=== PATIENT | male | born 1985 | race Caucasian/White ===

== ENCOUNTER 2020-11-15 07:48 | Emergency (ER) | payer OTHER ==
[~2020-11-15] VITALS: Ht 182.9 cm; Wt 89.1 kg
--- NOTE | 2020-11-15 08:59 | NUR ---
FIRST CONTACT: LEFT LOW BACK/FLANK PAIN, NAUSEA, CHILLS SINCE LAST NIGHT, "MAYBE A KIDNEY STONE"- NO HX OF, "DOESN'T HURT TO URINATE BUT THERE'S SENSITIVITY", DENIES OTHER URIN S/S OR DISCHARGE, +COVID VAX. PT WITH STEADY GAIT TO ROOM. POSTIONED TO COMFORT. ATTACHED TO MONITORS. FROY. JASWINDER.
[2020-11-15] MEDS ORDERED: SODIUM CHLORIDE 0.9% 1,000ML IV ONE (09:00)
[2020-11-15] MEDS ORDERED: KETOROLAC 30 MG/1 ML ONE (09:00)
[2020-11-15] MEDS ORDERED: KETOROLAC 30 MG/1 ML IVPush ONE (09:00)
[2020-11-15] MEDS ORDERED: SODIUM CHLORIDE FLUSH 10ML SYR IVF ONE (09:00)
[2020-11-15] MEDS ORDERED: ONDANSETRON 2MG/ML, 2ML ONE (09:08)
[2020-11-15 09:14] LABS: MICROSCOPIC INDICATED
[2020-11-15] MEDS ORDERED: MORPHINE SULFATE 4 MG/ML, 1ML ONE ×2 (09:18→11:08)
[2020-11-15] MEDS: MORPHINE SULFATE 4 MG/ML, 1ML IVPush PRN ×2 (09:28→11:13)
[2020-11-15] MEDS ORDERED: ONDANSETRON 2MG/ML, 2ML IVPush ONE (09:30)
[2020-11-15 09:32] LABS: BASOPHILS % (AUTO) 0 % (0-1); EOSINOPHILS % (AUTO) 0 % (1-7); LYMPHOCYTES % (AUTO) 8 % (22-44); MEAN CORPUSCULAR HEMOGLOBIN 29.4 pg (27.5-34.5); MEAN CORPUSCULAR HGB CONC 33.6 g/dL (33.2-36.2); MEAN PLATELET VOLUME 9.9 fL (7.4-10.4); MONOCYTES % (AUTO) 4 % (2-9); NEUTROPHILS % (AUTO) 88 % (42-75); PLATELET COUNT 233 x10^3/uL (130-400); RED BLOOD COUNT 5.72 x10^6/uL (4.38-5.82); RED CELL DISTRIBUTION WIDTH 13.7 % (9.4-14.8)
[2020-11-15 09:41] LABS: ALBUMIN 4.2 g/dL (3.4-5.0); CALCIUM 9.5 mg/dL (8.5-10.1)
[2020-11-15 09:46] LABS: ALANINE AMINOTRANSFERASE 21 U/L (12-78); ALKALINE PHOSPHATASE 87 U/L (45-117); BILIRUBIN,TOTAL 0.9 mg/dL (0.2-1.0); CREATININE 1.18 mg/dL (0.7-1.3); TOTAL PROTEIN 7.5 g/dL (6.4-8.2)
[2020-11-15 09:58] LABS: ANION GAP 6 mmol/L (5-15); CHLORIDE 108 mmol/L (98-107)
--- NOTE | 2020-11-15 10:12 | NUR ---
PT BACK FROM CT. RESTING IN BED. NADN. VSS. UP FOR RECHECK.
[2020-11-15 11:15] VITALS: BP 134/89
--- NOTE | 2020-11-15 11:40 | NUR ---
Patient given discharge instructions and they have confirmed that they understand the instructions. Patient ambulatory with steady gait. NAD, all questions answered appropriately, denies additional needs at this time. No personal belongings left in room after discharge.
== END 2020-11-15 11:41 | disposition home or self-care (01) ==
LOC: ED 10:13
DX: N13.2 Hydronephrosis with renal and ureteral calculous obstruction (principal); R93.5 Abnormal findings on diagnostic imaging of other abdominal regions, including retroperitoneum
CPT/HCPCS: 36415; 74176; 80053; 81001; 85025; 96374; 96375; 96376; 99284; J1885; J2270; J2405; J7030